=== PATIENT | female | born 1995 | race Caucasian/White ===

== ENCOUNTER 2021-07-11 20:13 | Emergency (ER) | payer MEDICAID ==
--- NOTE | 2021-07-11 20:52 | EDM.PDOC ---
ED HPI GENERAL MEDICAL PROBLEM - General Chief Complaint: General Stated Complaint: SOB, CHEST PAIN, CHILLS Time Seen by Provider: 07/11/21 20:26 Source of Information: Reports: Patient History Limitations: Reports: No Limitations - History of Present Illness INITIAL COMMENTS - FREE TEXT/NARRATIVE: Fer is a 26-year-old female presenting to the ED with concerns of exposure to Covid. 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 She states that 3 of them are known to have COVID-19 including 1 who has a trach that she has been doing trach care on. She started having symptoms of fever, chills, headache and body aches, cough and shortness of breath and had called [facility] to schedule a Covid test in the morning, however, they told her that if she got worse that she should come to the ER to be tested. This evening she became more short of breath with chest tightness and heaviness like somebody sitting on her chest prompting her to come in for evaluation. The patient has not been vaccinated for COVID-19 because work has been too busy to allow her to get the vaccination. Patient reports that she is putting in over 300 hours/month of work time between the different group homes. Chest Pain Score (Numeric/FACES): 7 - Related Data Allergies Allergy/AdvReac Type Severity Reaction Status Date / Time No Known Allergies Allergy Verified 07/11/21 20:45 ED ROS GENERAL - Review of Systems Review Of Systems: See Below Constitutional: Reports: Fever, Chills, Malaise, Fatigue, Decreased Appetite HEENT: Reports: Rhinitis, Throat Pain Respiratory: Reports: Shortness of Breath, Cough Cardiovascular: Reports: Chest Pain (Chest heaviness) Endocrine: Reports: Fatigue GI/Abdominal: Reports: Decreased Appetite, Nausea : Reports: No Symptoms Musculoskeletal: Reports: Muscle Pain, Other (Patient states that her fingers became white when she was coughing work today.) Skin: Reports: No Symptoms Neurological: Reports: Headache Psychiatric: Reports: No Symptoms Hematologic/Lymphatic: Reports: No Symptoms Immunologic: Reports: No Symptoms ED EXAM, GENERAL - Physical Exam Exam: See Below Exam Limited By: No Limitations General Appearance: Alert, Anxious, Mild Distress, Moderate Distress Eye Exam: Bilateral Eye: EOMI, PERRL Nose: Nasal Swelling, Nasal Drainage, Clear Rhinorrhea Throat/Mouth: Normal Inspection, Normal Oropharynx, Normal Voice, No Airway Compromise Head: Atraumatic, Normocephalic Neck: Normal Inspection, Supple, Non-Tender, Full Range of Motion. No: Lymphadenopathy (R), Lymphadenopathy (L) Respiratory/Chest: No Respiratory Distress, Lungs Clear, No Accessory Muscle Use, Decreased Breath Sounds (Diminished breath sounds in the bases). No: Crackles, Rales, Rhonchi, Wheezing Cardiovascular: Normal Peripheral Pulses, Regular Rate, Rhythm, No Murmur Peripheral Pulses: 2+: Radial (L), Radial (R) GI/Abdominal: Normal Bowel Sounds, Soft, Non-Tender Neurological: Alert, Oriented, Normal Cognition, No Motor/Sensory Deficits Psychiatric: Normal Affect, Anxious Skin Exam: Warm, Dry, Intact, Normal Color Course - Vital Signs Last Recorded V/S: Last Vital Signs Temp 36.6 C 07/11/21 20:46 Pulse 109 H 07/11/21 20:46 Resp 16 07/11/21 20:46 BP 109/85 07/11/21 20:46 Pulse Ox 99 07/11/21 20:46 - Orders/Labs/Meds Labs: Laboratory Tests 07/11/21 Range/Units 20:41 SARS CoV-2 RNA Rapid TREVOR Positive H - Re-Assessments/Exams Free Text/Narrative Re-Assessment/Exam: 07/11/21 21:00 patient is Covid 19+. She is not requiring any oxygenation nor does she meet criteria for monoclonal therapy at this time. She has no significant past medical history including diabetes, COPD, asthma or emphysema, coronary artery disease, hypertension, or kidney disease. Departure - Departure Time of Disposition: 21:10 Disposition: Home, Self-Care 01 Clinical Impression: COVID-19 - Discharge Information Instructions: 10 Things You Can Do to Manage Your COVID-19 Symptoms at Home - [facility] (04/01/2021), COVID-19: How to Protect Yourself and Others - CDC, COVID-19: What to Do If You Are Sick- [facility] (12/01/2020) Referrals: PCP,None [Primary Care Provider] - Forms: ED Department Discharge Care Plan Goals: Your test came back positive for COVID-19. You will need to go home and quarantine for the next 10 days. Currently you are not requiring oxygen, however, if your shortness of breath were to worsen to the point that she would require oxygen that would be an indication to hospitalize you. Given the fact that she did not have any comorbidities that we inquired about, you are not eligible for the monoclonal therapy. Sepsis Event Note (ED) - Focused Exam Vital Signs: Vital Signs Temp Pulse Resp BP Pulse Ox 07/11/21 20:46 36.6 C 109 H 16 109/85 99 - Problem List & Annotations (1) COVID-19 SNOMED Code(s): 940802323 Code(s): U07.1 - COVID-19 Status: Acute Priority: Medium Current Visit: Yes - Problem List Review Problem List Initiated/Reviewed/Updated: Yes
== END 2021-07-11 21:22 | disposition home or self-care (01) ==
LOC: JP.ED 20:13
DX: U07.1 COVID-19 (principal)
CPT/HCPCS: 99284; U0002